=== PATIENT | male | born 1970 | race Caucasian/White ===

== ENCOUNTER → 2016-05-18 | Outpatient (CLI) | payer OTHER ==
[2016-05-18 19:54] LABS: ALANINE AMINOTRANSFERASE 200 U/L (21-72); ALKALINE PHOSPHATASE 117 U/L (38-126); ASPARTATE AMINO TRANSFERASE 93 U/L (17-59)
== END ==
LOC: LAB 19:06
PROVIDERS: ATTEND Internal Medicine Infectious Disease
DX: M86.362 Chronic multifocal osteomyelitis, left tibia and fibula (principal)
CPT/HCPCS: 36415; 84075; 84450; 84460

== ENCOUNTER → 2016-06-05 | Outpatient (CLI) | payer OTHER ==
[2016-06-05 08:09] LABS: ABSOLUTE BASOPHILS # (AUTO) 0.1 10^3/uL (0.0-0.2); ABSOLUTE EOSINOPHILS # (AUTO) 0.3 10^3/uL (0.0-0.6); ABSOLUTE LYMPHOCYTES (AUTO) 1.6 10^3/uL (0.5-4.7); ABSOLUTE MONOCYTES (AUTO) 0.6 10^3/uL (0.1-1.4); ABSOLUTE NEUT (AUTO) 4.3 10^3/uL (1.7-8.2); BASOPHILS % (AUTO) 1.2 % (0-2); EOSINOPHILS % (AUTO) 4.5 % (0-6); HEMATOCRIT 39.8 % (37.9-51.0); HEMOGLOBIN 13.4 g/dL (13.5-17.0); HGB HCT DIFFERENCE 0.4; LYMPHOCYTES % (AUTO) 23.1 % (13-45); MEAN CORPUSCULAR HEMOGLOBIN 27.5 pg (27.0-33.4); MEAN CORPUSCULAR HGB CONC 33.7 g/dL (32.0-36.0); MEAN CORPUSCULAR VOLUME 82 fl (80-97); MONOCYTES % (AUTO) 8.6 % (3-13); RED BLOOD COUNT 4.88 10^6/uL (4.35-5.55); RED CELL DISTRIBUTION WIDTH 13.8 % (11.5-14.0); SEGMENTED NEUTROPHILS % (AUTO) 62.6 % (42-78); WHITE BLOOD COUNT 6.9 10^3/uL (4.0-10.5)
[2016-06-05 08:32] LABS: ALANINE AMINOTRANSFERASE 283 U/L (21-72); ALBUMIN 4.3 g/dL (3.5-5.0); ALKALINE PHOSPHATASE 123 U/L (38-126); ANION GAP 12 (5-19); ASPARTATE AMINO TRANSFERASE 145 U/L (17-59); BILIRUBIN,TOTAL 0.5 mg/dL (0.2-1.3); BLOOD UREA NITROGEN 13 mg/dL (7-20); C-REACTIVE PROTEIN 18.5 mg/L (<10.0); CALCIUM 10.1 mg/dL (8.4-10.2); CARBON DIOXIDE 28 mmol/L (22-30); CHLORIDE 104 mmol/L (98-107); CREATININE RESULT 0.98 mg/dL (0.52-1.25); GLUCOSE 101 mg/dL (75-110); POTASSIUM 4.9 mmol/L (3.6-5.0); SODIUM 144.4 mmol/L (137-145); TOTAL PROTEIN 7.2 g/dL (6.3-8.2)
[2016-06-05 08:57] LABS: ERYTHROCYTE SEDIMENTATION RATE 30 mm/hr (0-15)
== END ==
LOC: LAB 07:51
PROVIDERS: ATTEND Internal Medicine Infectious Disease
DX: M86.362 Chronic multifocal osteomyelitis, left tibia and fibula (principal)
CPT/HCPCS: 36415; 80053; 85025; 85652; 86140

== ENCOUNTER → 2016-07-28 | Outpatient (CLI) | payer OTHER ==
[2016-07-28 17:33] LABS: ABSOLUTE BASOPHILS # (AUTO) 0.1 10^3/uL (0.0-0.2); ABSOLUTE EOSINOPHILS # (AUTO) 0.4 10^3/uL (0.0-0.6); ABSOLUTE LYMPHOCYTES (AUTO) 3.4 10^3/uL (0.5-4.7); ABSOLUTE MONOCYTES (AUTO) 0.7 10^3/uL (0.1-1.4); EOSINOPHILS % (AUTO) 3.7 % (0-6); HEMOGLOBIN 14.4 g/dL (13.5-17.0); HGB HCT DIFFERENCE 0.2; LYMPHOCYTES % (AUTO) 31.9 % (13-45); MEAN CORPUSCULAR HEMOGLOBIN 27.3 pg (27.0-33.4); MEAN CORPUSCULAR HGB CONC 33.4 g/dL (32.0-36.0); MEAN CORPUSCULAR VOLUME 82 fl (80-97); RED BLOOD COUNT 5.27 10^6/uL (4.35-5.55); RED CELL DISTRIBUTION WIDTH 13.8 % (11.5-14.0); SEGMENTED NEUTROPHILS % (AUTO) 56.4 % (42-78); WHITE BLOOD COUNT 10.6 10^3/uL (4.0-10.5)
[2016-07-28 17:58] LABS: ALANINE AMINOTRANSFERASE 100 U/L (21-72); ALBUMIN 4.5 g/dL (3.5-5.0); ALKALINE PHOSPHATASE 104 U/L (38-126); ANION GAP 12 (5-19); ASPARTATE AMINO TRANSFERASE 55 U/L (17-59); BILIRUBIN,DIRECT 0.4 mg/dL (0.0-0.4); BILIRUBIN,TOTAL 0.5 mg/dL (0.2-1.3); BLOOD UREA NITROGEN 15 mg/dL (7-20); C-REACTIVE PROTEIN 11.2 mg/L (<10.0); CALCIUM 9.8 mg/dL (8.4-10.2); CARBON DIOXIDE 26 mmol/L (22-30); CHLORIDE 103 mmol/L (98-107); CREATININE RESULT 0.97 mg/dL (0.52-1.25); GLUCOSE 96 mg/dL (75-110); POTASSIUM 4.3 mmol/L (3.6-5.0); SODIUM 140.8 mmol/L (137-145); TOTAL PROTEIN 7.6 g/dL (6.3-8.2)
[2016-07-28 18:07] LABS: ERYTHROCYTE SEDIMENTATION RATE 20 mm/hr (0-15)
== END ==
LOC: OD 17:11
PROVIDERS: ATTEND Internal Medicine Infectious Disease
DX: M86.9 Osteomyelitis, unspecified (principal)
CPT/HCPCS: 36415; 80053; 85025; 85652; 86140

== ENCOUNTER → 2016-08-21 | Outpatient (CLI) | payer OTHER ==
[2016-08-21 10:53] LABS: ABSOLUTE BASOPHILS # (AUTO) 0.1 10^3/uL (0.0-0.2); ABSOLUTE EOSINOPHILS # (AUTO) 0.2 10^3/uL (0.0-0.6); ABSOLUTE MONOCYTES (AUTO) 0.6 10^3/uL (0.1-1.4); ABSOLUTE NEUT (AUTO) 6.6 10^3/uL (1.7-8.2); BASOPHILS % (AUTO) 1.2 % (0-2); EOSINOPHILS % (AUTO) 2.5 % (0-6); HEMATOCRIT 42.2 % (37.9-51.0); HEMOGLOBIN 14.2 g/dL (13.5-17.0); HGB HCT DIFFERENCE 0.4; LYMPHOCYTES % (AUTO) 20.8 % (13-45); MEAN CORPUSCULAR HEMOGLOBIN 27.5 pg (27.0-33.4); MEAN CORPUSCULAR HGB CONC 33.7 g/dL (32.0-36.0); MEAN CORPUSCULAR VOLUME 82 fl (80-97); MONOCYTES % (AUTO) 6.6 % (3-13); RED BLOOD COUNT 5.16 10^6/uL (4.35-5.55); RED CELL DISTRIBUTION WIDTH 13.4 % (11.5-14.0); SEGMENTED NEUTROPHILS % (AUTO) 68.9 % (42-78); WHITE BLOOD COUNT 9.5 10^3/uL (4.0-10.5)
[2016-08-21 11:22] LABS: ALANINE AMINOTRANSFERASE 64 U/L (21-72); ALBUMIN 4.4 g/dL (3.5-5.0); ALKALINE PHOSPHATASE 88 U/L (38-126); ANION GAP 14 (5-19); ASPARTATE AMINO TRANSFERASE 34 U/L (17-59); BILIRUBIN,DIRECT 0.3 mg/dL (0.0-0.4); BILIRUBIN,TOTAL 0.5 mg/dL (0.2-1.3); BLOOD UREA NITROGEN 13 mg/dL (7-20); C-REACTIVE PROTEIN 6.4 mg/L (<10.0); CALCIUM 9.7 mg/dL (8.4-10.2); CARBON DIOXIDE 25 mmol/L (22-30); CHLORIDE 103 mmol/L (98-107); CREATININE RESULT 1.05 mg/dL (0.52-1.25); GLUCOSE 97 mg/dL (75-110); POTASSIUM 4.3 mmol/L (3.6-5.0); SODIUM 142.3 mmol/L (137-145); TOTAL PROTEIN 7.4 g/dL (6.3-8.2)
[2016-08-21 11:35] LABS: ERYTHROCYTE SEDIMENTATION RATE 21 mm/hr (0-15)
== END ==
LOC: LAB 10:35
PROVIDERS: ATTEND Physician Assistant
DX: M86.9 Osteomyelitis, unspecified (principal)
CPT/HCPCS: 36415; 80053; 85025; 85652; 86140

== ENCOUNTER → 2016-10-13 | Outpatient (CLI) | payer OTHER ==
[2016-10-13 10:23] LABS: ALANINE AMINOTRANSFERASE 67 U/L (21-72); ALBUMIN 4.3 g/dL (3.5-5.0); ALKALINE PHOSPHATASE 94 U/L (38-126); ANION GAP 9 (5-19); ASPARTATE AMINO TRANSFERASE 34 U/L (17-59); BILIRUBIN,DIRECT 0.3 mg/dL (0.0-0.4); BILIRUBIN,TOTAL 0.4 mg/dL (0.2-1.3); BLOOD UREA NITROGEN 17 mg/dL (7-20); C-REACTIVE PROTEIN 7.6 mg/L (<10.0); CALCIUM 9.5 mg/dL (8.4-10.2); CARBON DIOXIDE 23 mmol/L (22-30); CHLORIDE 106 mmol/L (98-107); CREATININE RESULT 1.01 mg/dL (0.52-1.25); GLUCOSE 96 mg/dL (75-110); SODIUM 138.4 mmol/L (137-145); TOTAL PROTEIN 7.1 g/dL (6.3-8.2)
[2016-10-13 11:06] LABS: ERYTHROCYTE SEDIMENTATION RATE 23 mm/hr (0-15)
[2016-10-13 11:27] LABS: ABSOLUTE BASOPHILS # (AUTO) 0.1 10^3/uL (0.0-0.2); ABSOLUTE EOSINOPHILS # (AUTO) 0.3 10^3/uL (0.0-0.6); ABSOLUTE LYMPHOCYTES (AUTO) 2.5 10^3/uL (0.5-4.7); ABSOLUTE MONOCYTES (AUTO) 0.7 10^3/uL (0.1-1.4); ABSOLUTE NEUT (AUTO) 5.8 10^3/uL (1.7-8.2); BASOPHILS % (AUTO) 1.1 % (0-2); EOSINOPHILS % (AUTO) 3.2 % (0-6); HEMATOCRIT 40.5 % (37.9-51.0); HEMOGLOBIN 13.7 g/dL (13.5-17.0); HGB HCT DIFFERENCE 0.6; LYMPHOCYTES % (AUTO) 26.7 % (13-45); MEAN CORPUSCULAR HEMOGLOBIN 27.4 pg (27.0-33.4); MEAN CORPUSCULAR HGB CONC 33.9 g/dL (32.0-36.0); MEAN CORPUSCULAR VOLUME 81 fl (80-97); RED BLOOD COUNT 5.01 10^6/uL (4.35-5.55); RED CELL DISTRIBUTION WIDTH 13.8 % (11.5-14.0); WHITE BLOOD COUNT 9.3 10^3/uL (4.0-10.5)
== END ==
LOC: LAB 09:45
PROVIDERS: ATTEND Physician Assistant
DX: M86.9 Osteomyelitis, unspecified (principal)
CPT/HCPCS: 36415; 80053; 85025; 85652; 86140

== ENCOUNTER 2018-12-16 12:53 | Observation (INO) | payer OTHER ==
--- NOTE | 2018-12-16 13:43 | RADIOLOGY REPORT (SQ) ---
EXAM DESCRIPTION: CT HEAD WITHOUT COMPLETED DATE/TIME: 12/16/2018 1:35 pm REASON FOR STUDY: bed 9 stroke protocol slurred speech COMPARISON: None. TECHNIQUE: Axial images acquired through the brain without intravenous contrast. Images reviewed wi th bone, brain and subdural windows. Additional sagittal and coronal reconstructions were generated. Images stored on PACS. All CT scanners at this facility use dose modulation, iterative reconstruction, and/or weight based d osing when appropriate to reduce radiation dose to as low as reasonably achievable (ALARA). [facility]: Dose Right [facility]: CareDose [facility]: Dose Right [facility]: Teradose 4D [facility]: Abaxia RADIATION DOSE: CT Rad equipment meets quality standard of care and radiation dose reduction techniq ues were employed. CTDIvol: 53.2 mGy. DLP: 1070 mGy-cm. mGy. LIMITATIONS: None. FINDINGS: VENTRICLES: Normal size and contour. CEREBRUM: No masses. No hemorrhage. No midline shift. No evidence for acute infarction. Normal gra y/white matter differentiation. No areas of low density in the white matter. CEREBELLUM: No masses. No hemorrhage. No alteration of density. No evidence for acute infarction. EXTRAAXIAL SPACES: No fluid collections. No masses. ORBITS AND GLOBE: No intra- or extraconal masses. Normal contour of globe without masses. CALVARIUM: No fracture. PARANASAL SINUSES: No fluid or mucosal thickening. SOFT TISSUES: No mass or hematoma. OTHER: No other significant finding. IMPRESSION: NORMAL BRAIN CT WITHOUT CONTRAST. EVIDENCE OF ACUTE STROKE: NO. COMMENT: Pertinent findings on the imaging study reported as a CRITICAL RESULT to Dr Hall at13:32 on 12/16/2018. Category of Critical Result: CT code stroke Quality ID # [id number]: Final reports with documentation of one or more dose reduction techniques (e.g., Au tomated exposure control, adjustment of the mA and/or kV according to patient size, use of iterative reconstruction technique) TECHNICAL DOCUMENTATION: JOB ID: [id number] [employer]- All Rights Reserved Reading location - IP/workstation name: [email or web address]
--- NOTE | 2018-12-16 13:56 | RADIOLOGY REPORT (SQ) ---
EXAM DESCRIPTION: CHEST SINGLE VIEW COMPLETED DATE/TIME: 12/16/2018 1:37 pm REASON FOR STUDY: bed 9 stroke protocol COMPARISON: None. EXAM PARAMETERS: NUMBER OF VIEWS: One view. TECHNIQUE: Single frontal radiographic view of the chest acquired. RADIATION DOSE: NA LIMITATIONS: None. FINDINGS: LUNGS AND PLEURA: No opacities, masses or pneumothorax. No pleural effusion. MEDIASTINUM AND HILAR STRUCTURES: No masses. Contour normal. HEART AND VASCULAR STRUCTURES: Heart normal in size. Normal vasculature. BONES: No acute findings. HARDWARE: None in the chest. OTHER: No other significant finding. IMPRESSION: NO ACUTE RADIOGRAPHIC FINDING IN THE CHEST. TECHNICAL DOCUMENTATION: JOB ID: [id number] [employer]- All Rights Reserved Reading location - IP/workstation name: [email or web address]
[2018-12-16 14:14] LABS: INTERNATIONAL RATION (INR) 0.96; PARTIAL THROMBOPLASTIN TIME 32.4 SEC (23.5-35.8); PROTHROMBIN TIME 12.8 SEC (11.4-15.4)
[2018-12-16 14:20] LABS: ABSOLUTE BASOPHILS # (AUTO) 0.1 10^3/uL (0.0-0.2); ABSOLUTE EOSINOPHILS # (AUTO) 0.2 10^3/uL (0.0-0.6); ABSOLUTE LYMPHOCYTES (AUTO) 2.3 10^3/uL (0.5-4.7); ABSOLUTE MONOCYTES (AUTO) 0.7 10^3/uL (0.1-1.4); ABSOLUTE NEUT (AUTO) 5.6 10^3/uL (1.7-8.2); BASOPHILS % (AUTO) 0.7 % (0-2); EOSINOPHILS % (AUTO) 1.9 % (0-6); HEMATOCRIT 38.7 % (37.9-51.0); HEMOGLOBIN 12.9 g/dL (13.5-17.0); LYMPHOCYTES % (AUTO) 26.2 % (13-45); MEAN CORPUSCULAR HGB CONC 33.4 g/dL (32.0-36.0); MEAN CORPUSCULAR VOLUME 81 fl (80-97); MONOCYTES % (AUTO) 7.8 % (3-13); PLATELET COUNT 289 10^3/uL (150-450); RED CELL DISTRIBUTION WIDTH 14.6 % (11.5-14.0); SEGMENTED NEUTROPHILS % (AUTO) 63.4 % (42-78); TOTAL CELLS COUNTED % (AUTO) 100 %; WHITE BLOOD COUNT 8.9 10^3/uL (4.0-10.5)
--- NOTE | 2018-12-16 14:35 | ER Document Report ---
ED General - General Chief Complaint: Headache Stated Complaint: HEADACHE ,DIZZY,CONFUSED Time Seen by Provider: 12/16/18 13:46 Primary Care Provider: ANDREIA ANDERSON PA-C [NO LOCAL MD] - Follow up as needed Notes: 48-year-old male with history of PTSD and a right BKA presents to the emergency department with acute disorientation and confusion while work this morning. 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 He then drove to the [facility] and he was a little disoriented with traffic lights and his met him there and they came here. Patient denies headache, complained of some lightheadedness, states that 's speech was slow and not normal tempo, denies acute shortness of breath or chest pain, denies any acute limb weakness, denies abdominal pain. TRAVEL OUTSIDE OF THE [place] IN LAST 30 DAYS: No - Related Data Allergies/Adverse Reactions: Iodinated Contrast Media Allergy (Verified 12/16/18 14:47) vancomycin Allergy (Verified 12/16/18 14:47) Past Medical History - Social History Smoking Status: Never Smoker Family History: None Patient has suicidal ideation: No Patient has homicidal ideation: No Review of Systems - Review of Systems Constitutional: See HPI EENT: No symptoms reported Cardiovascular: See HPI Respiratory: See HPI Gastrointestinal: See HPI Genitourinary: No symptoms reported Male Genitourinary: No symptoms reported Musculoskeletal: See HPI Skin: See HPI Hematologic/Lymphatic: No symptoms reported Neurological/Psychological: No symptoms reported Physical Exam - Vital signs Vitals: Pulse Ox 98 12/16/18 13:26 - Notes Notes: PHYSICAL EXAMINATION: Reviewed vital signs and charting by RN GENERAL: Alert, interacts well. No acute distress. HEAD: Normocephalic, atraumatic. EYES: Pupils equal and round. Extraocular movements intact. ENT: Oral mucosa moist, tongue midline. NECK: Full range of motion. Trachea midline. LUNGS: Clear to auscultation bilaterally, no wheezes, rales, or rhonchi. No respiratory distress. HEART: Regular rate and rhythm. No murmur ABDOMEN: soft, non-tender. No distention. Bowel sounds present EXTREMITIES: Moves all 4 extremities spontaneously. Right BKA no edema, No cyanosis. 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 SKIN: Warm, dry, normal turgor. No rashes or lesions noted. Course - Re-evaluation Re-evalutation: 12/16/18 15:17 Lab work all within normal limits, CT head without did not show any evidence of acute infarction or intracranial bleed. Concern for potential TIA and I called the hospitalist, Janis Anderson NP, who accepted the patient to the [facility] for full admission. - Vital Signs Vital signs: Temp Pulse Resp BP Pulse Ox 85 15 132/93 H 95 12/16/18 14:05 12/16/18 15:07 12/16/18 15:07 12/16/18 15:07 - Laboratory Result Diagrams: 12/16/18 13:55 12/16/18 13:55 Laboratory results interpreted by me: 12/16/18 13:55 Hgb 12.9 L RDW 14.6 H Discharge - Discharge Clinical Impression: Disorientation, Slow rate of speech, TIA (transient ischemic attack) Condition: Stable Disposition: ADMITTED INPATIENT Admitting Provider: Steve (Hospitalist) Unit Admitted: [facility] Referrals: ANDREIA ANDERSON PA-C [NO LOCAL MD] - Follow up as needed
[2018-12-16 14:36] LABS: ALBUMIN 4.1 g/dL (3.5-5.0); ALKALINE PHOSPHATASE 90 U/L (38-126); ANION GAP 9 (5-19); ASPARTATE AMINO TRANSFERASE 39 U/L (17-59); BILIRUBIN,DIRECT 0.1 mg/dL (0.0-0.4); BILIRUBIN,TOTAL 0.2 mg/dL (0.2-1.3); BLOOD UREA NITROGEN 17 mg/dL (7-20); CALCIUM 9.7 mg/dL (8.4-10.2); CARBON DIOXIDE 27 mmol/L (22-30); CHLORIDE 102 mmol/L (98-107); CREATINE KINASE 105 U/L (55-170); GLUCOSE 98 mg/dL (75-110); POTASSIUM 4.3 mmol/L (3.6-5.0); TOTAL PROTEIN 6.8 g/dL (6.3-8.2)
[2018-12-16 14:48] LABS: CREATINE KINASE MB 0.83 ng/mL (<4.55)
[2018-12-16 14:50] LABS: TROPONIN I < 0.012 ng/mL
[2018-12-16] MEDS ORDERED: ACETAMINOPHEN 325 MG TABLET PO PRN (16:04)
[2018-12-16] MEDS ORDERED: ONDANSETRON HCL INJ/PF 4 MG/2 ML SDV IV PRN (16:04)
[2018-12-16] MEDS ORDERED: MAGNESIUM HYDROXIDE SUSP 30 ML UDCUP PO PRN (16:04)
[2018-12-16] MEDS ORDERED: TRAMADOL HCL 50 MG TABLET PO PRN (16:04)
[2018-12-16] MEDS ORDERED: DOCUSATE SODIUM 100 MG CAPSULE PO PRN (16:04)
--- NOTE | 2018-12-16 16:59 | PDOC H&P ---
History of Present Illness Admission Date/PCP: 12/16/18 15:26 [facility] Patient complains of: delayed speech, confusion History of Present Illness: MIO DOWELL is a 48 year old male with a PMH significant for HIRAL (uses CPAP), HLD, PTSD, remote BKA and subsequent cardiac arrest during surgery who presented to the emergency department with complaint of sudden onset headache, dizziness, delayed speech, and confusion at 1030 this morning. All symptoms have since resolved. Evaluation in the emergency room is unremarkable with stable vital signs, normal CBC, coags, and chemistry, and troponin; EKG demonstrating NSR, benign chest x- ray, and normal head CT. He is referred to the hospitalist service for admission and management for TIA/CVA rule out. Past Medical History Cardiac Medical History: Reports: Hyperlipidema, Other - Intraoperative cardiac arrest Pulmonary Medical History: Reports: Other - HIRAL EENT Medical History: Reports: None Neurological Medical History: Reports: None Endocrine Medical History: Reports: Obesity Renal/ Medical History: Reports: None Malignancy Medical History: Reports: None GI Medical History: Reports: None Musculoskeltal Medical History: Reports: None Skin Medical History: Reports: None Psychiatric Medical History: Reports: Post Traumatic Stress Disorder Traumatic Medical History: Reports: None Hematology: Reports: None Infectious Medical History: Reports: None Past Surgical History Past Surgical History: Reports: Cardiac Catheterization, Other - Rt BKA Social History Information Source: Patient Lives with: Family Smoking Status: Never Smoker Frequency of Alcohol Use: None Hx Recreational Drug Use: No Hx Prescription Drug Abuse: No - Advance Directive Resuscitation Status: Full Code Surrogate healthcare decision maker:: The patient's . Family History Family History: None Parental Family History Reviewed: Yes Children Family History Reviewed: Yes Sibling(s) Family History Reviewed.: Yes Medication/Allergy Allergies/Adverse Reactions: Iodinated Contrast Media Allergy (Verified 12/16/18 14:47) vancomycin Allergy (Verified 12/16/18 14:47) Review of Systems Constitutional: ABSENT: chills, fever(s), headache(s), weight gain, weight loss Eyes: ABSENT: visual disturbances Ears: ABSENT: hearing changes Cardiovascular: ABSENT: chest pain, dyspnea on exertion, edema, orthropnea, palpitations Respiratory: ABSENT: cough, hemoptysis Gastrointestinal: ABSENT: abdominal pain, constipation, diarrhea, hematemesis, hematochezia, nausea, vomiting Genitourinary: ABSENT: dysuria, hematuria Musculoskeletal: ABSENT: joint swelling Integumentary: ABSENT: rash, wounds Neurological: PRESENT: as per HPI, abnormal speech, confusion, dizziness. AB SENT: abnormal gait, focal weakness, syncope Psychiatric: ABSENT: anxiety, depression, homidical ideation, suicidal ideation Endocrine: ABSENT: cold intolerance, heat intolerance, polydipsia, polyuria Hematologic/Lymphatic: ABSENT: easy bleeding, easy bruising Physical Exam Vital Signs: Temp Pulse Resp BP Pulse Ox 85 14 117/76 99 12/16/18 14:05 12/16/18 16:01 12/16/18 16:01 12/16/18 16:01 Intake & Output 12/15/18 12/16/18 12/17/18 06:59 06:59 06:59 Weight 106.6 kg General appearance: PRESENT: no acute distress, cooperative, obese, well- developed, well-nourished Head exam: PRESENT: atraumatic, normocephalic Eye exam: PRESENT: conjunctiva pink, EOMI, PERRLA. ABSENT: scleral icterus Ear exam: PRESENT: normal external ear exam Mouth exam: PRESENT: moist, tongue midline Neck exam: ABSENT: carotid bruit, JVD, lymphadenopathy, thyromegaly Respiratory exam: PRESENT: clear to auscultation cooper, symmetrical, unlabored. ABSENT: rales, rhonchi, wheezes Cardiovascular exam: PRESENT: RRR, +S1, +S2. ABSENT: diastolic murmur, rubs, systolic murmur Pulses: PRESENT: normal dorsalis pedis pul Vascular exam: PRESENT: normal capillary refill GI/Abdominal exam: PRESENT: normal bowel sounds, soft. ABSENT: distended, guarding, mass, organolmegaly, rebound, tenderness Rectal exam: PRESENT: deferred Extremities exam: PRESENT: full ROM. ABSENT: calf tenderness, clubbing, pedal edema Neurological exam: PRESENT: alert, awake, oriented to person, oriented to place, oriented to time, oriented to situation, CN II-XII grossly intact. ABSENT: motor sensory deficit Psychiatric exam: PRESENT: appropriate affect, normal mood. ABSENT: homicidal ideation, suicidal ideation Skin exam: PRESENT: dry, intact, warm. ABSENT: cyanosis, rash Results Laboratory Results: 12/16/18 13:55 12/16/18 13:55 12/16/18 12/16/18 13:55 13:55 WBC 8.9 RBC 4.80 Hgb 12.9 L Hct 38.7 MCV 81 MCH 27.0 MCHC 33.4 RDW 14.6 H Plt Count 289 Seg Neutrophils % 63.4 Sodium 137.5 Potassium 4.3 Chloride 102 Carbon Dioxide 27 Anion Gap 9 BUN 17 Creatinine 1.02 Est GFR ( Amer) > 60 Glucose 98 Calcium 9.7 Total Bilirubin 0.2 AST 39 Alkaline Phosphatase 90 Total Protein 6.8 Albumin 4.1 12/16/18 12/16/18 13:55 13:55 Creatine Kinase 105 CK-MB (CK-2) 0.83 Troponin I < 0.012 Impressions: Chest X-Ray 12/16/18 13:25 IMPRESSION: NO ACUTE RADIOGRAPHIC FINDING IN THE CHEST. Head CT 12/16/18 13:25 IMPRESSION: NORMAL BRAIN CT WITHOUT CONTRAST. EVIDENCE OF ACUTE STROKE: NO. Assessment and Plan - Diagnosis (1) TIA (transient ischemic attack) Is this a current diagnosis for this admission?: Yes Plan: Patient is admitted to [facility] on continuous cardiac telemetry. Head CT is benign. We will obtain head MRI and carotid Doppler. No indication for transthoracic echocardiogram at this time. We will obtain lipid panel, A1c, TSH with a.m. lab work. Trend troponin. Urinalysis and UDS pending. Daily aspirin and statin therapy. Cardiac diet. (2) Slow rate of speech Is this a current diagnosis for this admission?: Yes Plan: Resolved; secondary to #1. Evaluation management as above. (3) Disorientation Is this a current diagnosis for this admission?: Yes Plan: Resolved; secondary to #1. Evaluation management as above. (4) PTSD (post-traumatic stress disorder) Is this a current diagnosis for this admission?: Yes Plan: Supportive care. Resume home medication regiment once reconciled. (5) Obesity (BMI 30-39.9) Is this a current diagnosis for this admission?: Yes Plan: BMI 36.3 Dietary discretion and lifestyle modification are encouraged. - Time Time Spent with patient: 35 or more minutes Medications reviewed and adjusted accordingly: Yes Anticipated discharge: Home Within: within 24 hours
[2018-12-16 20:09] LABS: APPEARANCE,URINE CLEAR; BILIRUBIN,URINE NEGATIVE (NEGATIVE); COLOR,URINE YELLOW; GLUCOSE, URINE NEGATIVE (NEGATIVE); KETONES,URINE NEGATIVE (NEGATIVE); LEUKOCYTE ESTERASE,URINE NEGATIVE (NEGATIVE); NITRITE,URINE NEGATIVE (NEGATIVE); PROTEIN,URINE NEGATIVE (NEGATIVE); URINE SPECIFIC GRAVITY 1.024; UROBILINOGEN,URINE NEGATIVE mg/dL (<2.0)
[2018-12-16 20:24] LABS: URINE AMPHETAMINES SCREEN NEGATIVE; URINE BARBITURATES SCREEN NEGATIVE; URINE BENZODIAZEPINES SCREEN NEGATIVE; URINE COCAINE SCREEN NEGATIVE; URINE MARIJUANA (THC) SCREEN NEGATIVE; URINE METHADONE SCREEN NEGATIVE; URINE PHENCYCLIDINE SCREEN NEGATIVE
--- NOTE | 2018-12-16 21:42 | RADIOLOGY REPORT (SQ) ---
EXAM DESCRIPTION: CLINICAL HISTORY: 48 years Male MUÑOZ, dizziness, slurred speech COMPARISON: CT of the head from today. TECHNIQUE: Multisequence multiplanar images of the brain without gadolinium. FINDINGS: Normal size ventricles. No suspicious intra-axial or extra-axial lesions. No evidence for abnormal diffusion. No evidence for congenital abnormalities. Minimal thickening in the ethmoid air cells. Pituitary gland not enlarged. IMPRESSION: Unremarkable MRI of the brain without gadolinium.
[2018-12-16] MEDS ORDERED: ATORVASTATIN CALCIUM 80 MG TABLET PO SCH (22:00)
[2018-12-16] MEDS: FAMOTIDINE 20 MG TABLET PO SCH (22:06)
[2018-12-16] MEDS: HEPARIN SOD (PORCINE) 5,000 UNIT/ML 1 ML VIAL SUBCUT SCH (22:07)
--- NOTE | 2018-12-17 00:30 | EKG REPORT ---
SEVERITY:- NORMAL ECG - SINUS RHYTHM : Confirmed by: Nori Vázquez MD 17-Dec-2018 00:28:49
[2018-12-17 05:33] LABS: HEMATOCRIT 40.4 % (37.9-51.0); HEMOGLOBIN 13.7 g/dL (13.5-17.0); MEAN CORPUSCULAR HEMOGLOBIN 27.3 pg (27.0-33.4); MEAN CORPUSCULAR HGB CONC 33.9 g/dL (32.0-36.0); MEAN CORPUSCULAR VOLUME 81 fl (80-97); PLATELET COUNT 290 10^3/uL (150-450); RED BLOOD COUNT 5.01 10^6/uL (4.35-5.55); RED CELL DISTRIBUTION WIDTH 14.4 % (11.5-14.0); WHITE BLOOD COUNT 8.2 10^3/uL (4.0-10.5)
[2018-12-17 05:50] LABS: ANION GAP 9 (5-19); BLOOD UREA NITROGEN 16 mg/dL (7-20); CALCIUM 9.4 mg/dL (8.4-10.2); CARBON DIOXIDE 25 mmol/L (22-30); CHLORIDE 104 mmol/L (98-107); CHOLESTEROL 193.31 mg/dL (0-200); GLUCOSE 97 mg/dL (75-110); POTASSIUM 4.5 mmol/L (3.6-5.0); TRIGLYCERIDES 338 mg/dL (<150)
[2018-12-17 06:01] LABS: DIRECT LDL 123 mg/dL (<100)
[2018-12-17 06:11] LABS: VLDL CHOLESTEROL 67.6 mg/dL (10-31)
[2018-12-17] MEDS: HEPARIN SOD (PORCINE) 5,000 UNIT/ML 1 ML VIAL SUBCUT SCH (06:23)
[2018-12-17] MEDS: FAMOTIDINE 20 MG TABLET PO SCH (09:09)
[2018-12-17] MEDS ORDERED: ASPIRIN 81 MG TABLET, ENT COATED PO SCH (10:00)
--- NOTE | 2018-12-17 11:42 | RADIOLOGY REPORT (SQ) ---
EXAM DESCRIPTION: CAROTID DOPPLER COMPLETED DATE/TIME: 12/16/2018 7:13 pm REASON FOR STUDY: TIA/CVA COMPARISON: MRI brain 12/16/2018 CT brain 12/16/2018 TECHNIQUE: Grayscale ultrasound, Doppler velocity and spectra, and color Doppler images acquired of the extra-cranial carotid and vertebral arteries. Images stored on PACS. LIMITATIONS: None. FINDINGS: RIGHT CAROTID CCA Velocities: Within normal limits. Right common carotid artery peak systolic velocity 1.0 m/sec. ICA Velocities Peak systolic 0.89 m/s. End diastolic 0.20 m/s. Proximal ICA/CCA peak systolic ratio 1.4. Spectra normal. No significant plaque. LEFT CAROTID CCA Velocities: Within normal limits. Left common carotid artery peak systolic velocity 0.8 m/sec ICA Velocities Peak systolic 1.0 m/s. End diastolic 0.22 m/s. Proximal ICA/CCA peak systolic ratio 1.0. Spectra normal. No significant plaque. VERTEBRAL ARTERIES: Antegrade flow. Normal waveforms. SUBCLAVIAN ARTERIES: Not evaluated OTHER: No other significant finding. IMPRESSION: NO HEMODYNAMICALLY SIGNIFICANT STENOSIS. COMMENT: Quality ID #[id number]: Velocity criteria are extrapolated from the diameter data as defined by t he Society of Radiologists in Ultrasound Consensus Conference. Radiology 2003: 229; 340-346. TECHNICAL DOCUMENTATION: JOB ID: [id number] [employer]- All Rights Reserved Reading location - IP/workstation name: [email or web address]
--- NOTE | 2018-12-17 12:19 | PDOC DISCHARGE SUMMARY ---
Impression - Admit/DC Date/PCP Admission Date/Primary Care Provider: 12/16/18 15:26 [facility] Discharge Date: 12/17/18 - Discharge Diagnosis (1) TIA (transient ischemic attack) Is this a current diagnosis for this admission?: Yes (2) Hyperlipidemia Is this a current diagnosis for this admission?: Yes (3) Disorientation Is this a current diagnosis for this admission?: Yes (4) Slow rate of speech Is this a current diagnosis for this admission?: Yes (5) PTSD (post-traumatic stress disorder) Is this a current diagnosis for this admission?: Yes (6) Obesity (BMI 30-39.9) Is this a current diagnosis for this admission?: Yes - Additional Information Resuscitation Status: Full Code Discharge Diet: Cardiac Discharge Activity: Activity As Tolerated Referrals: [facility] [Provider Group] (Patient will have to make own appointment. [facility] does not allow anyone but patient to make appointment.) Prescriptions: Atorvastatin Calcium [Lipitor 40 mg Tablet] 40 mg PO QHS #30 tablet Home Medications: Aripiprazole [Abilify 2 mg Tablet] 4 mg PO DAILY 12/17/18 Aspirin [Aspirin 325 mg Tablet] 325 mg PO DAILY 12/17/18 Atorvastatin Calcium [Lipitor 40 mg Tablet] 40 mg PO QHS #30 tablet 12/17/18 Cholecalciferol (Vitamin D3) [Vitamin D3 1000 Unit Tablet] 1,000 unit PO DAILY 12/17/18 Duloxetine HCl [Cymbalta 30 mg Capsule.dr] 90 mg PO DAILY 12/17/18 [place]-3 Fatty Acids/Fish Oil [Fish Oil 1,000 mg Capsule] 2 each PO BID 12/17/18 History of Present Illiness History of Present Illness: MIO DOWELL is a 48 year old male with a history of cardiac arrest during his right leg amputation. He has a past medical history that also includes obstructive sleep apnea on BiPAP, hyperlipidemia and posttraumatic stress disorder. On the morning of admission he had an acute onset of headache, dizziness and delayed speech. He was confused. The symptoms were transient and had resolved prior to admission to the emergency department. He was admitted for transient ischemic attack evaluation. Hospital Course Hospital Course: The patient had an unremarkable hospital course. His work-up was negative for cerebrovascular disease. MRI, CT scan and carotid ultrasound studies were all negative. Physical Exam Vital Signs: Temp Pulse Resp BP Pulse Ox 97.4 F 72 16 125/80 99 12/17/18 08:48 12/17/18 08:48 12/17/18 08:48 12/17/18 08:48 12/17/18 08:48 Intake & Output 12/16/18 12/17/18 12/18/18 06:59 06:59 06:59 Intake Total 440 Balance 440 Weight 105.8 kg General appearance: PRESENT: no acute distress, cooperative, well-developed Head exam: PRESENT: atraumatic, normocephalic Eye exam: PRESENT: conjunctiva pink, EOMI. ABSENT: scleral icterus Ear exam: PRESENT: TM's normal bilaterally. ABSENT: bleeding, drainage Mouth exam: PRESENT: moist, tongue midline Respiratory exam: PRESENT: clear to auscultation cooper, symmetrical, unlabored. ABSENT: prolonged expiratory phas, rales, rhonchi, tachypnea, wheezes Cardiovascular exam: PRESENT: RRR, +S1, +S2. ABSENT: diastolic murmur, systolic murmur GI/Abdominal exam: PRESENT: normal bowel sounds, soft. ABSENT: distended, tenderness Rectal exam: PRESENT: deferred Extremities exam: PRESENT: full ROM, other - right leg prosthetic in place.. ABSENT: joint swelling, pedal edema Musculoskeletal exam: PRESENT: ambulatory, normal inspection Neurological exam: PRESENT: alert, awake, oriented to person, oriented to place, oriented to time, oriented to situation, CN II-XII grossly intact. ABSENT: motor sensory deficit Psychiatric exam: PRESENT: appropriate affect, normal mood. ABSENT: agitated, anxious Focused psych exam: ABSENT: delusional, restlessness Skin exam: PRESENT: dry, normal color, warm. ABSENT: rash Results Laboratory Results: WBC 8.2 10^3/uL (4.0-10.5) 12/17/18 04:57 RBC 5.01 10^6/uL (4.35-5.55) 12/17/18 04:57 Hgb 13.7 g/dL (13.5-17.0) 12/17/18 04:57 Hct 40.4 % (37.9-51.0) 12/17/18 04:57 MCV 81 fl (80-97) 12/17/18 04:57 MCH 27.3 pg (27.0-33.4) 12/17/18 04:57 MCHC 33.9 g/dL (32.0-36.0) 12/17/18 04:57 RDW 14.4 % (11.5-14.0) H 12/17/18 04:57 Plt Count 290 10^3/uL (150-450) 12/17/18 04:57 Lymph % (Auto) 26.2 % (13-45) 12/16/18 13:55 Frio % (Auto) 7.8 % (3-13) 12/16/18 13:55 Eos % (Auto) 1.9 % (0-6) 12/16/18 13:55 Baso % (Auto) 0.7 % (0-2) 12/16/18 13:55 Absolute Neuts (auto) 5.6 10^3/uL (1.7-8.2) 12/16/18 13:55 Absolute Lymphs (auto) 2.3 10^3/uL (0.5-4.7) 12/16/18 13:55 Absolute Monos (auto) 0.7 10^3/uL (0.1-1.4) 12/16/18 13:55 Absolute Eos (auto) 0.2 10^3/uL (0.0-0.6) 12/16/18 13:55 Absolute Basos (auto) 0.1 10^3/uL (0.0-0.2) 12/16/18 13:55 Seg Neutrophils % 63.4 % (42-78) 12/16/18 13:55 PT 12.8 SEC (11.4-15.4) 12/16/18 13:55 INR 0.96 12/16/18 13:55 APTT 32.4 SEC (23.5-35.8) 12/16/18 13:55 Sodium 138.4 mmol/L (137-145) 12/17/18 04:57 Potassium 4.5 mmol/L (3.6-5.0) 12/17/18 04:57 Chloride 104 mmol/L (98-107) 12/17/18 04:57 Carbon Dioxide 25 mmol/L (22-30) 12/17/18 04:57 Anion Gap 9 (5-19) 12/17/18 04:57 BUN 16 mg/dL (7-20) 12/17/18 04:57 Creatinine 1.00 mg/dL (0.52-1.25) 12/17/18 04:57 Est GFR ( Amer) > 60 (>60) 12/17/18 04:57 Est GFR (MDRD) Non-Af > 60 (>60) 12/17/18 04:57 Glucose 97 mg/dL (75-110) 12/17/18 04:57 Hemoglobin A1c % 5.8 % (4.7-6.0) 12/17/18 04:57 Calcium 9.4 mg/dL (8.4-10.2) 12/17/18 04:57 Total Bilirubin 0.2 mg/dL (0.2-1.3) 12/16/18 13:55 Direct Bilirubin 0.1 mg/dL (0.0-0.4) 12/16/18 13:55 Neonat Total Bilirubin Not Reportable 12/16/18 13:55 Neonat Direct Bilirubin Not Reportable 12/16/18 13:55 Neonat Indirect Bili Not Reportable 12/16/18 13:55 AST 39 U/L (17-59) 12/16/18 13:55 ALT 65 U/L (<50) 12/16/18 13:55 Alkaline Phosphatase 90 U/L (38-126) 12/16/18 13:55 Creatine Kinase 105 U/L (55-170) 12/16/18 13:55 CK-MB (CK-2) 0.83 ng/mL (<4.55) 12/16/18 13:55 Troponin I < 0.012 ng/mL 12/17/18 00:29 Total Protein 6.8 g/dL (6.3-8.2) 12/16/18 13:55 Albumin 4.1 g/dL (3.5-5.0) 12/16/18 13:55 Triglycerides 338 mg/dL (<150) H 12/17/18 04:57 Cholesterol 193.31 mg/dL (0-200) 12/17/18 04:57 LDL Cholesterol Direct 123 mg/dL (<100) H 12/17/18 04:57 VLDL Cholesterol 67.6 mg/dL (10-31) H 12/17/18 04:57 HDL Cholesterol 39 mg/dL (>40) L 12/17/18 04:57 TSH 2.61 uIU/mL (0.47-4.68) 12/17/18 04:57 Urine Color YELLOW 12/16/18 13:55 Urine Appearance CLEAR 12/16/18 13:55 Urine pH 6.0 (5.0-9.0) 12/16/18 13:55 Ur Specific Drake 1.024 12/16/18 13:55 Urine Protein NEGATIVE mg/dL (NEGATIVE) 12/16/18 13:55 Urine Glucose (UA) NEGATIVE mg/dL (NEGATIVE) 12/16/18 13:55 Urine Ketones NEGATIVE mg/dL (NEGATIVE) 12/16/18 13:55 Urine Blood NEGATIVE (NEGATIVE) 12/16/18 13:55 Urine Nitrite NEGATIVE (NEGATIVE) 12/16/18 13:55 Urine Bilirubin NEGATIVE (NEGATIVE) 12/16/18 13:55 Urine Urobilinogen NEGATIVE mg/dL (<2.0) 12/16/18 13:55 Ur Leukocyte Esterase NEGATIVE (NEGATIVE) 12/16/18 13:55 Urine WBC (Auto) 1 /HPF 12/16/18 13:55 Urine RBC (Auto) 1 /HPF 12/16/18 13:55 Urine Mucus (Auto) RARE /LPF 12/16/18 13:55 Urine Ascorbic Acid NEGATIVE (NEGATIVE) 12/16/18 13:55 Urine Opiates Screen NEGATIVE 12/16/18 13:55 Urine Methadone Screen NEGATIVE 12/16/18 13:55 Ur Barbiturates Screen NEGATIVE 12/16/18 13:55 Ur Phencyclidine Scrn NEGATIVE 12/16/18 13:55 Ur Amphetamines Screen NEGATIVE 12/16/18 13:55 U Benzodiazepines Scrn NEGATIVE 12/16/18 13:55 Urine Cocaine Screen NEGATIVE 12/16/18 13:55 U Marijuana (THC) Screen NEGATIVE 12/16/18 13:55 12/16/18 12/16/18 12/17/18 13:55 18:30 00:29 CK-MB (CK-2) 0.83 Troponin I < 0.012 < 0.012 < 0.012 Impressions: Head MRI 12/16/18 00:00 IMPRESSION: Unremarkable MRI of the brain without gadolinium. Chest X-Ray 12/16/18 13:25 IMPRESSION: NO ACUTE RADIOGRAPHIC FINDING IN THE CHEST. Head CT 12/16/18 13:25 IMPRESSION: NORMAL BRAIN CT WITHOUT CONTRAST. EVIDENCE OF ACUTE STROKE: NO. Carotid Doppler Study 12/16/18 16:08 IMPRESSION: NO HEMODYNAMICALLY SIGNIFICANT STENOSIS. Plan Health Concerns: Significant hyperlipidemia Plan of Treatment: The patient will have aspirin and statin therapy on discharge. I also encouraged weight loss. Goals: Improved lipid panel and weight loss Time Spent: Greater than 30 Minutes Stroke Is this a Stroke Patient?: Yes Stroke Pt being discharged on Anti-thrombolytic therapy?: Yes Stroke Pt being discharged on Anti-coagulation therapy?: No Reason(s) for not prescribing Anti-coagulation therapy:: Not indicated Stroke Pt being discharged on Statins?: Yes Acute Heart Failure - Is this a Heart Failure Patient?: No
[2018-12-17 13:21] VITALS: BP 134/80
== END 2018-12-17 13:50 | disposition home or self-care (01) ==
LOC: ER 12:53 → INTOOBSV 15:26 → EH 15:26 → 3S 17:26
PROVIDERS: ADMIT Internal Medicine; ATTEND Internal Medicine
DX: G45.9 Transient cerebral ischemic attack, unspecified (principal); E78.5 Hyperlipidemia, unspecified; R41.0 Disorientation, unspecified; R47.89 Other speech disturbances; F43.10 Post-traumatic stress disorder, unspecified; E66.9 Obesity, unspecified; G47.33 Obstructive sleep apnea (adult) (pediatric); Z68.36 Body mass index [BMI] 36.0-36.9, adult; Z79.82 Long term (current) use of aspirin; Z86.74 Personal history of sudden cardiac arrest; Z89.511 Acquired absence of right leg below knee; Z79.899 Other long term (current) drug therapy
CPT/HCPCS: 93005; 99285; 36415 ×2; 82553; 82550; 84443; 85025; 85027; 85610; 85730; 80048; 80053; 81001; 84484 ×2; 80307; 83036; 80061; 93880; 70551; 71045; 70450; 93010; 94660; G0378 ×3; J1644 ×2; J3490 ×2

== ENCOUNTER 2019-07-31 18:34 | Emergency (ER) | payer OTHER ==
--- NOTE | 2019-07-31 19:25 | ER Document Report ---
ED Medical Screen (RME) - General Chief Complaint: Leg Swelling Stated Complaint: LEG SWELLING Time Seen by Provider: 07/31/19 19:21 Primary Care Provider: MONICA GARG [Primary Care Provider] - Follow up as needed Mode of Arrival: Ambulatory Information source: Patient Notes: HPI; 48-year-old male presents to the emergency room with left leg swelling that has been persistent for the past 2 months. No trauma no injury. States he was seen at the [facility] on Sunday was referred to the emergency room for ultrasound to rule out a DVT. Denies any shortness of breath, no difficulty breathing. PE: Alert and oriented x3. Right BKA, left lower extremity with scarring noted. Swelling noted to the left lower calf. It is nontender to palpation. It is warm to touch. Lungs are clear to auscultation without rales rhonchi wheezes, heart: Regular rate and rhythm without murmurs rubs or gallops. I have greeted and performed a rapid initial assessment of this patient. A comprehensive ED assessment and evaluation of the patient, analysis of test results and completion of medical decision making process will be conducted by an additional ED providers. TRAVEL OUTSIDE OF THE [place] IN LAST 30 DAYS: No - Related Data Allergies/Adverse Reactions: Iodinated Contrast Media Allergy (Verified 07/31/19 19:19) vancomycin Allergy (Verified 07/31/19 19:19) Past Medical History - Past Medical History Cardiac Medical History: Reports: Hx Hypercholesterolemia Psychiatric Medical History: Reports: Hx Post Traumatic Stress Disorder Past Surgical History: Reports: Hx Cardiac Catheterization, Other - Rt BKA Physical Exam - Vital signs Vitals: Temp Pulse Resp BP Pulse Ox 98.4 F 90 16 126/81 H 98 07/31/19 18:38 07/31/19 18:38 07/31/19 18:38 07/31/19 18:38 07/31/19 18:38 Course - Vital Signs Vital signs: Temp Pulse Resp BP Pulse Ox 98.4 F 90 16 126/81 H 98 07/31/19 18:38 07/31/19 18:38 07/31/19 18:38 07/31/19 18:38 07/31/19 18:38 Doctor's Discharge - Discharge Referrals: [facility] [Primary Care Provider] - Follow up as needed
--- NOTE | 2019-07-31 21:11 | ER Document Report ---
ED Extremity Problem, Lower - General Chief Complaint: Leg Swelling Stated Complaint: LEG SWELLING Time Seen by Provider: 07/31/19 19:21 [facility]: [facility] [[facility]] - Follow up as needed Mode of Arrival: Ambulatory Notes: 28-year-old man presents to the emergency department with a three-week history of left lower extremity swelling. He was seen at the [facility] outpatient clinic today and sent to the emergency department told that he needed a ultrasound of his left lower extremity to exclude a possible blood clot. Patient denies severe pain, shortness of breath or prior history of DVT. TRAVEL OUTSIDE OF THE [place] IN LAST 30 DAYS: No - Related Data Allergies/Adverse Reactions: Iodinated Contrast Media Allergy (Verified 07/31/19 19:19) vancomycin Allergy (Verified 07/31/19 19:19) Past Medical History - General Information source: Patient - Social History Smoking Status: Never Smoker Chew tobacco use (# tins/day): No Frequency of alcohol use: 1-2 beers/day Family History: None Patient has homicidal ideation: No - Past Medical History Cardiac Medical History: Reports: Hx Hypercholesterolemia, Hx Hypertension Psychiatric Medical History: Reports: Hx Post Traumatic Stress Disorder Past Surgical History: Reports: Hx Cardiac Catheterization, Hx Orthopedic Surgery - rbka/multiple lower extremities, Other - Rt BKA Review of Systems - Review of Systems Notes: Constitutional: Negative for fever. HENT: Negative for sore throat. Eyes: Negative for visual changes. Cardiovascular: Negative for chest pain. Respiratory: Negative for shortness of breath. Gastrointestinal: Negative for abdominal pain, vomiting or diarrhea. Genitourinary: Negative for dysuria. Musculoskeletal: +right BKA, + lower extremity swelling Skin: Negative for rash. Neurological: Negative for headaches, weakness or numbness. 10 point ROS negative except as marked above and in HPI. Physical Exam - Vital signs Vitals: Temp Pulse Resp BP Pulse Ox 98.4 F 90 16 126/81 H 98 07/31/19 18:38 07/31/19 18:38 07/31/19 18:38 07/31/19 18:38 07/31/19 18:38 - Notes Notes: PHYSICAL EXAMINATION: Physical Exam: General: Well-nourished well-developed in no acute distress HEENT: NC/AT, pupils equal round and reactive to light, MM moist,nares clear, oropharynx clear, airway patent Neck: supple, no adenopathy, no masses. Good range of motion Lungs: clear, no wheezing, no rales no rhonchi CVS: Regular rate and rhythm no murmur gallop or rub Abdomen: Soft, active, nontender, no masses, no hepatosplenomegaly Ext: Right BKA, left lower extremity edema, nontender, negative Homans Neuro: Alert and responsive, moving all 4 extremities on command, cranial nerves intact, no focal findings Skin: Intact no open lesions, no rash PSYCH: Normal mood, normal affect. Course - Re-evaluation Re-evalutation: 07/31/19 23:13 Patient presented to the emergency department to get a Doppler of his left lower extremity to exclude DVT. [facility] However, the tech who performs Dopplers has gone home and they do not return to the emergency department for testing. I have explained this to the patient and have told him that he should come to the hospital for early tomorrow for a Doppler study. Given his low likelihood of DVT he is not put on high coagulation medications. - Vital Signs Vital signs: Temp Pulse Resp BP Pulse Ox 98.4 F 90 16 126/81 H 98 07/31/19 19:19 07/31/19 18:38 07/31/19 18:38 07/31/19 18:38 07/31/19 18:38 Discharge - Discharge Clinical Impression: Swelling of left lower extremity Condition: Good Disposition: HOME, SELF-CARE Additional Instructions: You were seen in the emergency department with left leg swelling and a request for Doppler of the left lower extremity was made. Please return to the emergency department tomorrow after 9 AM and the DVT rule out study can be performed. If you have new concerns or difficulties you may return to the emergency department for further evaluation and treatment. HOME CARE INSTRUCTIONS & INFORMATION: Thank you for choosing us for your medical needs. We hope you're satisfied with the care you received. After you l eave, you must properly care for your problem and, at the same time, observe its progress. Any condition can change. Some illnesses can change rapidly over hours or days. If your condition worsens, return to the Emergency Department or see your physician promptly. ABOUT YOUR X-RAYS AND EKG'S: If you had an EKG or X-rays taken, they have been read by the Emergency Physician. The X-rays and EKG's will also be read by a Radiologist or Air Conditioning Specialist within 24 hours. If discrepancies are noted, you will be notified by telephone. Please be certain the ED has a correct telephone number & address where you can be reached. Also, realize that some fractures or abnormalities do not show up on initial X-rays. If your symptoms continue, see your physician. ABOUT YOUR LABORATORY TEST: If you had laboratory tests, the results have been reviewed by the Emergency Physician. Some test results (for example cultures) may not be available for several days. You will be contacted if any test result shows you need additional treatment. Please be certain the ED has a correct telephone number and address where you can be reached. ABOUT YOUR MEDICATIONS: You will receive instructions on how to take your medicine on the prescription label you receive. Additional information may be provided by the Pharmacy. If you have questions afterwards, call the ED for clarification or further instructions. Some prescribed medications may cause drowsiness. Do not perform tasks such as driving a car or operating machinery without consulting your Pharmacist. If you feel you need a refill of pain medication, your condition will need re-evaluation. Please do not call for a refill of any medication. ABOUT YOUR SIGNATURE: Signature of this document acknowledges to followin. Understanding that you received emergency treatment and that you may be released before al medical problems are known or treated. Please be certain the ED has a correct phone number & address where you can be reached. 2. Acknowledgement that you will arrange for follow-up care as recommended. 3. Authorization for the Emergency Physician to provide information to your follow-up Physician in order to maximize your care. AT ANY TIME, IF YOUR SYMPTOMS CHANGE SIGNIFICANTLY OR WORSEN OR YOU DEVELOP NEW SYMPTOMS, RETURN TO THE EMERGENCY DEPARTMENT IMMEDIATELY FOR RE-EVALUATION. OUR GOAL IS TO PROVIDE EXCELLENT MEDICAL CARE! WE HOPE THAT WE HAVE MET YOUR EXPECTATIONS DURING YOUR EMERGENCY DEPARTMENT VISIT AND THAT YOU FEEL YOU HAVE RECEIVED EXCELLENT CARE! Referrals: [facility] [Primary Care Provider] - Follow up as needed
[2019-07-31 23:59] VITALS: BP 128/78
== END 2019-07-31 23:58 | disposition home or self-care (01) ==
LOC: ER 18:34
DX: M79.89 Other specified soft tissue disorders (principal); I10 Essential (primary) hypertension; Z89.511 Acquired absence of right leg below knee; Z91.041 Radiographic dye allergy status; Z88.1 Allergy status to other antibiotic agents
CPT/HCPCS: 99283

== ENCOUNTER 2019-08-01 10:03 | Emergency (ER) | payer OTHER ==
--- NOTE | 2019-08-01 11:28 | RADIOLOGY REPORT (SQ) ---
EXAM DESCRIPTION: VENOUS UNILATERAL LOWER IMAGES COMPLETED DATE/TIME: 08/01/2019 11:16 am REASON FOR STUDY: Left leg swelling COMPARISON: None. TECHNIQUE: Dynamic and static garcia scale and color images acquired of the left leg venous system. Se lected spectral images acquired with additional compression and augmentation maneuvers. The contralat eral common femoral vein and saphenofemoral junction were also imaged. Images stored on PACS. LIMITATIONS: None. FINDINGS: COMMON FEMORAL: Normal phasicity, compression and augmentation. No visualized echogenic ma terial on garcia scale. No defects on color images. FEMORAL: Normal compression and augmentation. No visualized echogenic material on garcia scale. No defe cts on color images. POPLITEAL: Normal compression, augmentation. No visualized echogenic material on garcia scale. No defec ts on color images. CALF VESSELS: Normal compression, augmentation. No visualized echogenic material on garcia scale. No de fects on color images. GSV and SSV: Normal compression, augmentation. No visualized echogenic material on garcia scale. No def ects on color images. ANY DEEP VENOUS INSUFFICIENCY: Not evaluated. ANY EVIDENCE OF POPLITEAL CYST: No. OTHER: No other significant finding. CONTRALATERAL COMMON FEMORAL VEIN AND SAPHENOFEMORAL JUNCTION: Normal phasicity, compression and augmentation. No visualized echogenic material on garcia scale. No de fects on color images. IMPRESSION: NO EVIDENCE DVT OR SVT IN THE LEFT LEG. TECHNICAL DOCUMENTATION: JOB ID: [id number] 2010 [employer]- All Rights Reserved Reading location - IP/workstation name: [email or web address]
[2019-08-01 11:36] LABS: ABSOLUTE BASOPHILS # (AUTO) 0.1 10^3/uL (0.0-0.2); ABSOLUTE EOSINOPHILS # (AUTO) 0.2 10^3/uL (0.0-0.6); ABSOLUTE LYMPHOCYTES (AUTO) 2.1 10^3/uL (0.5-4.7); ABSOLUTE MONOCYTES (AUTO) 0.5 10^3/uL (0.1-1.4); ABSOLUTE NEUT (AUTO) 4.5 10^3/uL (1.7-8.2); EOSINOPHILS % (AUTO) 3.3 % (0-6); HEMOGLOBIN 13.8 g/dL (13.5-17.0); LYMPHOCYTES % (AUTO) 28.5 % (13-45); MEAN CORPUSCULAR HEMOGLOBIN 27.8 pg (27.0-33.4); MEAN CORPUSCULAR HGB CONC 34.4 g/dL (32.0-36.0); MEAN CORPUSCULAR VOLUME 81 fl (80-97); MONOCYTES % (AUTO) 6.7 % (3-13); PLATELET COUNT 279 10^3/uL (150-450); RED BLOOD COUNT 4.95 10^6/uL (4.35-5.55); RED CELL DISTRIBUTION WIDTH 13.5 % (11.5-14.0); SEGMENTED NEUTROPHILS % (AUTO) 60.5 % (42-78); TOTAL CELLS COUNTED % (AUTO) 100 %; WHITE BLOOD COUNT 7.5 10^3/uL (4.0-10.5)
[2019-08-01 11:53] LABS: ALBUMIN 4.2 g/dL (3.5-5.0); ALKALINE PHOSPHATASE 107 U/L (38-126); ANION GAP 9 (5-19); ASPARTATE AMINO TRANSFERASE 52 U/L (17-59); BILIRUBIN,TOTAL 0.5 mg/dL (0.2-1.3); BLOOD UREA NITROGEN 13 mg/dL (7-20); CALCIUM 9.8 mg/dL (8.4-10.2); CARBON DIOXIDE 25 mmol/L (22-30); CHLORIDE 103 mmol/L (98-107); GLUCOSE 98 mg/dL (75-110); POTASSIUM 4.4 mmol/L (3.6-5.0); TOTAL PROTEIN 7.1 g/dL (6.3-8.2)
[2019-08-01 12:52] VITALS: BP 111/78
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
== END 2019-08-01 12:52 | disposition home or self-care (01) ==
LOC: ER 10:03
DX: R22.42 Localized swelling, mass and lump, left lower limb (principal); E78.00 Pure hypercholesterolemia, unspecified; I10 Essential (primary) hypertension; Z89.511 Acquired absence of right leg below knee; Z88.3 Allergy status to other anti-infective agents
CPT/HCPCS: 36415; 80053; 85025; 85379; 93971; 99284